=== PATIENT | male | born 1980 | race African-American/Black ===

== ENCOUNTER 2017-08-02 05:05 | Observation (INO) | payer SELFPAY ==
[~2017-08-02] VITALS: Ht 177.8 cm; Wt 85.0 kg
[~2017-08-02 05:05] MED LIST: ZOFR4TAB3 SL
[2017-08-02 05:10] VITALS: BP 131/90; PULSE 76; RESP 18; TEMP 98.4; O2SAT 98
--- NOTE | 2017-08-02 05:29 | PD ---
HPI Chief Complaint: GI Complaint Time Seen by Provider: 05:17 Travel History International Travel<30 days: No Contact w/Intl Traveler<30days: No Traveled to known affect area: No History of Present Illness HPI 36-year-old male states in the middle the night he woke up vomiting. When he went to the bathroom he noticed he had some pain to his left upper abdomen. He denies any diarrhea or other concurrent complaints. He denies any specific sick contacts. He denies recurrent history of this. He denies prior history of pancreatitis or diverticulitis. Quality is sharp. Severity is moderate. He denies specific migration of the pain. The vomiting is nonbloody. He states he was fine yesterday. PFSH Past Medical History Blood Disorders: No Cancer: No Cardiovascular Problems: No Chemotherapy: No Endocrine: No Gastrointestinal Disorders: No Genitourinary: No Immune Disorder: No Musculoskeletal: No Neurologic: No Reproductive: No Radiation Therapy: No Past Surgical History Other Surgery: Yes (LEFT KNEE FOR +MRSA) Social History Alcohol Use: Yes (OCC) Tobacco Use: No Substance Use: No Allergies-Medications (Allergen,Severity, Reaction): Coded Allergies: No Known Allergies (Verified Adverse Reaction, Unknown, 08/02/17) Reported Meds & Prescriptions Reported Meds & Active Scripts Active Review of Systems Except as stated in HPI: all other systems reviewed are Neg Physical Exam Narrative GENERAL: 36 y/o male in no apparent distress SKIN: Focused skin assessment warm/dry. HEAD: Atraumatic. Normocephalic. EYES: Pupils equal and round. No scleral icterus. No injection or drainage. ENT: No nasal bleeding or discharge. Mucous membranes pink and moist. NECK: Trachea midline. CARDIOVASCULAR: Regular rate and rhythm. RESPIRATORY: No accessory muscle use. no increased effort GASTROINTESTINAL: Abdomen soft, ttp in luq, nondistended. MUSCULOSKELETAL: No obvious deformities. No clubbing. No cyanosis. NEUROLOGICAL: Awake and alert. No obvious cranial nerve deficits. Motor grossly within normal limits. Normal speech. Data Data Last Documented VS Vital Signs Date Time Temp Pulse Resp B/P (MAP) Pulse Ox O2 Delivery O2 Flow Rate FiO2 08/02/17 05:10 98.4 76 18 131/90 (104) 98 Orders Orders Complete Blood Count With Diff (08/02/17 05:17) Comprehensive Metabolic Panel (08/02/17 05:17) Urinalysis - C+S If Indicated (08/02/17 05:17) Lipase (08/02/17 05:17) Ct Abd/Pel W/O Iv Contrast (08/02/17 ) Iv Access Insert/Monitor (08/02/17 05:17) Ondansetron Inj (Zofran Inj) (08/02/17 05:30) Sodium Chlor 0.9% 1000 Ml Inj (Ns 1000 M (08/02/17 05:30) Electrocardiogram (08/02/17 06:49) Ckmb (Isoenzyme) Profile (08/02/17 06:49) Magnesium (Mg) (08/02/17 06:49) Prothrombin Time / Inr (Pt) (08/02/17 06:49) Act Partial Throm Time (Ptt) (08/02/17 06:49) Troponin I (08/02/17 06:49) Chest, Single Ap (08/02/17 06:49) Sodium Chloride 0.9% Flush (Ns Flush) (08/02/17 07:00) Drug Screen, Random Urine (08/02/17 06:49) Labs Laboratory Tests Test 08/02/17 05:20 White Blood Count 4.1 TH/MM3 Red Blood Count 5.33 MIL/MM3 Hemoglobin 14.6 GM/DL Hematocrit 43.9 % Mean Corpuscular Volume 82.4 FL Mean Corpuscular Hemoglobin 27.4 PG Mean Corpuscular Hemoglobin Concent 33.3 % Red Cell Distribution Width 13.3 % Platelet Count 199 TH/MM3 Mean Platelet Volume 8.8 FL Neutrophils (%) (Auto) 36.6 % Lymphocytes (%) (Auto) 54.2 % Monocytes (%) (Auto) 5.5 % Eosinophils (%) (Auto) 2.9 % Basophils (%) (Auto) 0.8 % Neutrophils # (Auto) 1.5 TH/MM3 Lymphocytes # (Auto) 2.2 TH/MM3 Monocytes # (Auto) 0.2 TH/MM3 Eosinophils # (Auto) 0.1 TH/MM3 Basophils # (Auto) 0.0 TH/MM3 CBC Comment DIFF FINAL Differential Comment Blood Urea Nitrogen 11 MG/DL Creatinine 1.20 MG/DL Random Glucose 96 MG/DL Total Protein 7.9 GM/DL Albumin 3.8 GM/DL Calcium Level 8.8 MG/DL Alkaline Phosphatase 68 U/L Aspartate Amino Transf (AST/SGOT) 26 U/L Alanine Aminotransferase (ALT/SGPT) 25 U/L Total Bilirubin 0.5 MG/DL Sodium Level 138 MEQ/L Potassium Level 4.1 MEQ/L Chloride Level 105 MEQ/L Carbon Dioxide Level 27.1 MEQ/L Anion Gap 6 MEQ/L Estimat Glomerular Filtration Rate 83 ML/MIN Lipase 80 U/L MDM Medical Decision Making Medical Screen Exam Complete: Yes Emergency Medical Condition: Yes Medical Record Reviewed: Yes (pmh confirmed) Differential Diagnosis pancreatitis, stone, diverticulitis.... Narrative Course will check labs, ua, ct abdomen and dose with zofran and reevaluate mother states family history of heart disease with her and her mother in their 40s. Patient now stating he earlier had left arm pain. Will add on cardiac workup Physician Communication Physician Communication dr hernandez to follow work up and reevaluate Davina Figueroa MD Aug 02, 2017 05:29
[2017-08-02] MEDS ORDERED: ONDANSETRON HCL 4 MG/2 ML VIAL IV PUSH ONE (05:30)
[2017-08-02] MEDS ORDERED: SODIUM CHLOR 0.9% 1000 ML INJ 1,000 ML IV ONE (05:30)
--- NOTE | 2017-08-02 05:44 | RADRPT ---
EXAM DATE/TIME: 08/02/2017 05:21 [facility] COMPARISON: No previous studies available for comparison. INDICATIONS : Left side abdominal pain and vomiting. ORAL CONTRAST: No oral contrast ingested. RADIATION DOSE: 7.04 CTDIvol (mGy) MEDICAL HISTORY : None SURGICAL HISTORY : None. ENCOUNTER: Initial ACUITY: 1 day PAIN SCALE: 6/10 LOCATION: Left abdomen. TECHNIQUE: Volumetric scanning of the abdomen and pelvis was performed. Using automated exposure control and ad justment of the mA and/or kV according to patient size, radiation dose was kept as low as reasonably achievable to obtain optimal diagnostic quality images. DICOM format image data is available electro nically for review and comparison. FINDINGS: LOWER LUNGS: The visualized lower lungs are clear. LIVER: Homogeneous density without lesion. There is no dilation of the biliary tree. No calcified gallston es. SPLEEN: Normal size without lesion. PANCREAS: Within normal limits. KIDNEYS: Normal in size and shape. There is no mass, stone, or hydronephrosis. ADRENAL GLANDS: Within normal limits. VASCULAR: There is no aortic aneurysm. BOWEL/MESENTERY: The stomach, small bowel, and colon demonstrate no acute abnormality. There is no free intraperitone al air or fluid. ABDOMINAL WALL: Within normal limits. RETROPERITONEUM: There is no lymphadenopathy. BLADDER: No wall thickening or mass. REPRODUCTIVE: Within normal limits. INGUINAL: There is no lymphadenopathy or hernia. MUSCULOSKELETAL: Within normal limits for patient age. CONCLUSION: Normal examination. Chance Lanier Jr., MD on August 02, 2017 at 5:42 Board Certified Radiologist. This report was verified electronically.
[2017-08-02 05:51] LABS: AUTOMATED NEUTROPHIL # 1.5 TH/MM3 (1.8-7.7); BASOPHIL % 0.8 % (0.0-2.0); EOSINOPHIL # 0.1 TH/MM3 (0-0.4); EOSINOPHIL % 2.9 % (0.0-4.0); HEMATOCRIT 43.9 % (39.0-51.0); HEMOGLOBIN 14.6 GM/DL (13.0-17.0); LYMPH % 54.2 % (9.0-44.0); LYMPHOCYTE # 2.2 TH/MM3 (1.0-4.8); MEAN CELL VOLUME 82.4 FL (80.0-100.0); MEAN CORPUSCULAR HEMOGLOBIN 27.4 PG (27.0-34.0); MEAN CORPUSCULAR HGB CONC 33.3 % (32.0-36.0); MEAN PLATELET VOLUME 8.8 FL (7.0-11.0); MONO % 5.5 % (0.0-8.0); MONOCYTE # 0.2 TH/MM3 (0-0.9); NEUT % 36.6 % (16.0-70.0); PLATELET COUNT 199 TH/MM3 (150-450); RED BLOOD COUNT 5.33 MIL/MM3 (4.50-5.90); RED CELL DISTRIBUTION WIDTH 13.3 % (11.6-17.2); WHITE BLOOD COUNT 4.1 TH/MM3 (4.0-11.0)
[2017-08-02 06:29] LABS: ALT (GPT) 25 U/L (12-78)
[2017-08-02 06:31] LABS: ALKALINE PHOSPHATASE 68 U/L (45-117); TOTAL BILIRUBIN ADULT 0.5 MG/DL (0.2-1.0); TOTAL PROTEIN 7.9 GM/DL (6.4-8.2)
[2017-08-02 06:36] LABS: ALBUMIN 3.8 GM/DL (3.4-5.0); AST (GOT) 26 U/L (15-37); BICARBONATE 27.1 MEQ/L (21.0-32.0); BLOOD UREA NITROGEN 11 MG/DL (7-18); CALCIUM 8.8 MG/DL (8.5-10.1); CHLORIDE 105 MEQ/L (98-107); GLOMERULAR FILTRATION RATE 83 ML/MIN (>89); GLUCOSE,RANDOM 96 MG/DL (74-106); SODIUM (NA) 138 MEQ/L (136-145)
[2017-08-02] MEDS ORDERED: SODIUM CHLORIDE 0.9% FLUSH 10 ML FLUSH IVF PRN (07:00)
--- NOTE | 2017-08-02 07:21 | RADRPT ---
EXAM DATE/TIME: 08/02/2017 07:05 [facility] COMPARISON: No previous studies available for comparison. INDICATIONS : Chest and abdominal pain, left arm numbness and vomiting. MEDICAL HISTORY : None. SURGICAL HISTORY : None. ENCOUNTER: Initial ACUITY: 1 day PAIN SCORE: 6/10 LOCATION: Left Chest, abdomen, arm. FINDINGS: A single view of the chest demonstrates the lungs to be symmetrically aerated without evidence of mas s, infiltrate or effusion. The cardiomediastinal contours are unremarkable. Osseous structures are intact. CONCLUSION: Normal examination. Johana Rasmussen MD on August 02, 2017 at 7:20 Board Certified Radiologist. This report was verified electronically.
[2017-08-02 07:49] LABS: BILIRUBIN, URINE NEG (NEG); BLOOD, URINE NEG (NEG); GLUCOSE,URINE NEG (NEG); KETONE, URINE NEG (NEG); MUCUS URINE FEW /lpf (OCC); NITRITE,URINE NEG (NEG); SQUAMOUS EPITHELIAL CELL URINE <1 /hpf (0-5); URINE COLOR YELLOW (YELLW/STRAW); URINE LEUKOCYTE ESTERASE NEG (NEG)
[2017-08-02 07:50] LABS: INTERNATIONAL NORMALIZED RATIO 1.1 RATIO; PROTHROMBIN TIME - PATIENT 11.1 SEC (9.8-11.6)
--- NOTE | 2017-08-02 08:17 | PD ---
Physical Exam Narrative Receive sign out from previous team to follow up with cardiac work up and reevaluate. 36yo M initially came in for abdominal pain but also left sided chest pain that is atypical. Said he vomited this morning, had epigastric abdominal pain but also left sided chest pain that is crampy. Chest pain is atypical but mother said pt has significant family history of cardiac disease. Said she had CAD and heart attack in her 50s. Said never had this before. Denies cig smoking. Labs reviewed, no leukocytosis. H/H normal. CMP unremarkable. Lipase normal. Utox negative. UA negative. CXR negative. CT a/p normal examination. EKG showed sinus bradycardia at 58bpm. Normal axis. TWI III. ID depression II, V4-V6. The computer is reading it as ST elevation consistent with injury but I do not see ST segment elevation. Troponin negative. Pt given ibuprofen which helped with pain. Given family history, will do observation with chest pain center. Data Data Last Documented VS Vital Signs Date Time Temp Pulse Resp B/P (MAP) Pulse Ox O2 Delivery O2 Flow Rate FiO2 08/02/17 05:10 98.4 76 18 131/90 (104) 98 Orders Orders Complete Blood Count With Diff (08/02/17 05:17) Comprehensive Metabolic Panel (08/02/17 05:17) Urinalysis - C+S If Indicated (08/02/17 05:17) Lipase (08/02/17 05:17) Ct Abd/Pel W/O Iv Contrast (08/02/17 ) Iv Access Insert/Monitor (08/02/17 05:17) Ondansetron Inj (Zofran Inj) (08/02/17 05:30) Sodium Chlor 0.9% 1000 Ml Inj (Ns 1000 M (08/02/17 05:30) Electrocardiogram (08/02/17 06:49) Ckmb (Isoenzyme) Profile (08/02/17 06:49) Magnesium (Mg) (08/02/17 06:49) Prothrombin Time / Inr (Pt) (08/02/17 06:49) Act Partial Throm Time (Ptt) (08/02/17 06:49) Troponin I (08/02/17 06:49) Chest, Single Ap (08/02/17 06:49) Sodium Chloride 0.9% Flush (Ns Flush) (08/02/17 07:00) Drug Screen, Random Urine (08/02/17 06:49) Ibuprofen (Motrin) (08/02/17 08:30) CKMB (08/02/17 05:20) CKMB% (08/02/17 05:20) Admit Order (Ed Use Only) (08/02/17 09:48) Labs Laboratory Tests Test 08/02/17 05:20 08/02/17 07:20 White Blood Count 4.1 TH/MM3 Red Blood Count 5.33 MIL/MM3 Hemoglobin 14.6 GM/DL Hematocrit 43.9 % Mean Corpuscular Volume 82.4 FL Mean Corpuscular Hemoglobin 27.4 PG Mean Corpuscular Hemoglobin Concent 33.3 % Red Cell Distribution Width 13.3 % Platelet Count 199 TH/MM3 Mean Platelet Volume 8.8 FL Neutrophils (%) (Auto) 36.6 % Lymphocytes (%) (Auto) 54.2 % Monocytes (%) (Auto) 5.5 % Eosinophils (%) (Auto) 2.9 % Basophils (%) (Auto) 0.8 % Neutrophils # (Auto) 1.5 TH/MM3 Lymphocytes # (Auto) 2.2 TH/MM3 Monocytes # (Auto) 0.2 TH/MM3 Eosinophils # (Auto) 0.1 TH/MM3 Basophils # (Auto) 0.0 TH/MM3 CBC Comment DIFF FINAL Differential Comment Blood Urea Nitrogen 11 MG/DL Creatinine 1.20 MG/DL Random Glucose 96 MG/DL Total Protein 7.9 GM/DL Albumin 3.8 GM/DL Calcium Level 8.8 MG/DL Alkaline Phosphatase 68 U/L Aspartate Amino Transf (AST/SGOT) 26 U/L Alanine Aminotransferase (ALT/SGPT) 25 U/L Total Bilirubin 0.5 MG/DL Sodium Level 138 MEQ/L Potassium Level 4.1 MEQ/L Chloride Level 105 MEQ/L Carbon Dioxide Level 27.1 MEQ/L Anion Gap 6 MEQ/L Estimat Glomerular Filtration Rate 83 ML/MIN Magnesium Level 2.1 MG/DL Total Creatine Kinase 160 U/L Creatine Kinase MB LESS THAN 0.5 NG/ML Troponin I LESS THAN 0.02 NG/ML Lipase 80 U/L Prothrombin Time 11.1 SEC Prothromb Time International Ratio 1.1 RATIO Activated Partial Thromboplast Time 26.0 SEC Urine Color YELLOW Urine Turbidity CLEAR Urine pH 6.0 Urine Specific [place] 1.023 Urine Protein NEG mg/dL Urine Glucose (UA) NEG mg/dL Urine Ketones NEG mg/dL Urine Occult Blood NEG Urine Nitrite NEG Urine Bilirubin NEG Urine Urobilinogen LESS THAN 2.0 MG/DL Urine Leukocyte Esterase NEG Urine WBC 1 /hpf Urine Squamous Epithelial Cells <1 /hpf Urine Mucus FEW /lpf Microscopic Urinalysis Comment CULT NOT INDICATED Urine Opiates Screen NEG Urine Barbiturates Screen NEG Urine Amphetamines Screen NEG Urine Benzodiazepines Screen NEG Urine Cocaine Screen NEG Urine Cannabinoids Screen NEG MDM Supervised Visit with [facility]A: No Diagnosis Primary Impression: Chest pain Qualified Codes: R07.9 - Chest pain, unspecified Admitting Information Admitting Physician Requests: Observation Scripts No Active Prescriptions or Reported Meds Sindy Zhou DO Aug 02, 2017 08:17
[2017-08-02] MEDS ORDERED: IBUPROFEN 600 MG TAB PO ONE (08:30)
[2017-08-02 08:48] LABS: TROPONIN I LESS THAN 0.02 NG/ML (0.02-0.05)
[2017-08-02 08:49] LABS: MAGNESIUM 2.1 MG/DL (1.5-2.5)
[2017-08-02 11:00] VITALS: BP 121/62; PULSE 57; RESP 18; O2SAT 97
[2017-08-02] MEDS ORDERED: NITROGLYCERIN 0.4 MG SL 25 TABS/BTL SL PRN (11:00)
[2017-08-02] MEDS ORDERED: ONDANSETRON HCL 4 MG/2 ML VIAL IV PUSH PRN (11:00)
[2017-08-02] MEDS ORDERED: ACETAMINOPHEN 500 MG CPLT PO PRN (11:00)
[2017-08-02 11:48] VITALS: BP 118/78; PULSE 63; RESP 18; O2SAT 98
--- NOTE | 2017-08-02 11:59 | HHI.HP ---
HPI Primary Care Physician No Primary Care Physician Chief Complaint Abdominal pain History of Present Illness 36-year-old male with no past significant medical history presents to emergency room for further evaluation of abdominal pain and vomiting. Onset 430. Reports awaken with a bad dream that he was choking. Upon awakening reports nonbloody emesis in his mouth and severely nauseated. Once awaken experienced left midabdominal pain with radiation to left flank Characterized sharp and "as the worse cramp ever." Left arm initiating felt numb and tinglingly, currently resolved. Duration of abdominal discomfort constant, stated "most mild pain only now." No associated symptoms of dyspnea or diaphoresis. No known precipitating or relieving factors. Denies similar pain in the past. No particular movement or position makes pain better or worse. No recent fever, chills, illness, or recent travel. Mother at bedside and verbalized concern with her own cardiac issues beginning in her mid 30s. Apparently she had an undetermined cause for mildly elevated troponin's leading to multiple stress testing and cardiac catheterization. Denies any early Mi's or early onset coronary disease to her knowledge. Review of Systems General: No fatigue,weakness, fever, chills, recent illness, or change in appetite. Has been in his general state of health. HEENT: No BURT, no nasal congestion or drainage, no dysphasia, or history of GERD. CV: As stated above, denied having chest pain, points to left lateral, mid abdominal area. RESP: No SOB, cough, wheeze, or recent URI GI: Nausea and vomiting have resolved. No bowel changes, diarrhea, constipation , pain, distention, melena, or blood in the stool. No unintentional weight gain or weight loss. : No dysuria, urgency, frequency, EXT: No lower leg edema, no paraesthesias MS: No discomfort, injury, trauma, or change in ROM NEURO: No difficulty with balance, LOC, motor/sensory deficits PSYCH: No anxiety, depression SKIN: No rashes, no concerning lesions Past Family Social History Allergies: Coded Allergies: No Known Allergies (Verified Allergy, Unknown, 08/02/17) Past Medical History None Past Surgical History Left ankle surgery Reported Medications Reported Meds & Active Scripts Active Active Ordered Medications Current Medications Medications (Trade) Dose Ordered Sig/Kamryn Route Start Time Stop Time Status Last Admin (NS Flush) 2 ml UNSCH PRN IVF 08/02/17 07:00 (NS Flush) 2 ml BID IV FLUSH 08/02/17 21:00 (Tylenol) 500 mg Q4H PRN PO 08/02/17 11:00 (Zofran Inj) 4 mg Q6H PRN IV PUSH 08/02/17 11:00 (Nitrostat Sl) 0.4 mg Q5M PRN SL 08/02/17 11:00 (Aspirin) 325 mg DAILY PO 08/03/17 09:00 Family History Mother reports elevated troponin's in her early 30s, cause undetermined, denies any early CAD or [place]. Most recently mother had cardiac catheterization, no intervention required. Social History No known diabetes, hypertension, or hyperlipidemia. Lifelong non-smoker. Endorses active lifestyle, runs twice week, attends gym regular basis. Past cardiac testing None Physical Exam Vital Signs Vital Signs Date Time Temp Pulse Resp B/P (MAP) Pulse Ox O2 Delivery O2 Flow Rate FiO2 08/02/17 11:00 57 18 121/62 (81) 97 Room Air 08/02/17 05:10 98.4 76 18 131/90 (104) 98 Physical Exam GENERAL: Alert WN, WD, NAD, pleasant, -Guyanese male HEAD: NC, AT EYES: Sclera clear, conjunctiva without injection, pupils equal and round ENT: Mucous membranes pink and moist CV: RRR, without murmur, rub, gallop, no JVD, S1-S2 no S3-S4. Chest wall nontender with palpation. RESP: Clear lungs throughout bilateral, no crackles, wheeze, rhonchi, symmetrical chest rise, nonlabored, able to speak in full sentences ABD: Soft, NT, ND, no masses, positive bowel tones EXT: Pulses +2x4, no dependent edema MS: Normal tone x4 extremities, no obvious deformities, full range of motion NEURO: CN II through CN XII grossly intact, motor strength 5/5 PSYCH: A+O -3, pleasant affect, appropriate speech, mood, insight and judgment SKIN: Normal turgor, normal texture, no lesions, no rashes, brisk cap refill, even hair distribution Laboratory Laboratory Tests Test 08/02/17 05:20 08/02/17 07:20 White Blood Count 4.1 Red Blood Count 5.33 Hemoglobin 14.6 Hematocrit 43.9 Mean Corpuscular Volume 82.4 Mean Corpuscular Hemoglobin 27.4 Mean Corpuscular Hemoglobin Concent 33.3 Red Cell Distribution Width 13.3 Platelet Count 199 Mean Platelet Volume 8.8 Neutrophils (%) (Auto) 36.6 Lymphocytes (%) (Auto) 54.2 Monocytes (%) (Auto) 5.5 Eosinophils (%) (Auto) 2.9 Basophils (%) (Auto) 0.8 Neutrophils # (Auto) 1.5 Lymphocytes # (Auto) 2.2 Monocytes # (Auto) 0.2 Eosinophils # (Auto) 0.1 Basophils # (Auto) 0.0 CBC Comment DIFF FINAL Differential Comment Blood Urea Nitrogen 11 Creatinine 1.20 Random Glucose 96 Total Protein 7.9 Albumin 3.8 Calcium Level 8.8 Alkaline Phosphatase 68 Aspartate Amino Transf (AST/SGOT) 26 Alanine Aminotransferase (ALT/SGPT) 25 Total Bilirubin 0.5 Sodium Level 138 Potassium Level 4.1 Chloride Level 105 Carbon Dioxide Level 27.1 Anion Gap 6 Estimat Glomerular Filtration Rate 83 Magnesium Level 2.1 Total Creatine Kinase 160 Creatine Kinase MB LESS THAN 0.5 Troponin I LESS THAN 0.02 Lipase 80 Prothrombin Time 11.1 Prothromb Time International Ratio 1.1 Activated Partial Thromboplast Time 26.0 Urine Color YELLOW Urine Turbidity CLEAR Urine pH 6.0 Urine Specific [place] 1.023 Urine Protein NEG Urine Glucose (UA) NEG Urine Ketones NEG Urine Occult Blood NEG Urine Nitrite NEG Urine Bilirubin NEG Urine Urobilinogen LESS THAN 2.0 Urine Leukocyte Esterase NEG Urine WBC 1 Urine Squamous Epithelial Cells <1 Urine Mucus FEW Microscopic Urinalysis Comment CULT NOT INDICATED Urine Opiates Screen NEG Urine Barbiturates Screen NEG Urine Amphetamines Screen NEG Urine Benzodiazepines Screen NEG Urine Cocaine Screen NEG Urine Cannabinoids Screen NEG Result Diagram: 08/02/17 0520 08/02/17 0520 Imaging Last 48 hours Impressions Chest X-Ray 08/02/17 0649 Signed Impressions: Service Date/Time: Wednesday, August 02, 2017 07:05 - CONCLUSION: Normal examination. Johana Rasmussen MD Abdomen/Pelvis CT 08/02/17 0000 Signed Impressions: Service Date/Time: Wednesday, August 02, 2017 05:21 - CONCLUSION: Normal examination. Chance Lanier Jr., MD Course EKG NSB, st elevation may represent early repolarization Caprini VTE Risk Assessment Caprini VTE Risk Assessment: No/Low Risk (score <= 1) Caprini Risk Assessment Model Point Value = 1 Point Value = 2 Point Value = 3 Point Value = 5 Age 41-60 Minor surgery BMI > 25 kg/m2 Swollen legs Varicose veins or History of unexplained or recurrent spontaneous Oral contraceptives or hormone replacement Sepsis (< 1 month) Serious lung disease, including pneumonia (< 1 month) Abnormal pulmonary function Acute myocardial infarction Congestive heart failure (< 1 month) History of inflammatory bowel disease Medical patient at bed rest Age 61-74 Arthroscopic surgery Major open surgery (> 45 min) Laparoscopic surgery (> 45 min) Malignancy Confined to bed (> 72 hours) Immobilizing plaster cast Central venous access Age >= 75 History of VTE Family history of VTE Factor V Leiden Prothrombin [id number] Lupus anticoagulant Anticardiolipin antibodies Elevated serum homocysteine Heparin-induced thrombocytopenia Other congenital or acquired thrombophilia Stroke (< 1 month) Elective arthroplasty Hip, pelvis, or leg fracture Acute spinal cord injury (< 1 month) Prophylaxis Regimen Total Risk Factor Score Risk Level Prophylaxis Regimen 0-1 Low Early ambulation 2 Moderate Order ONE of the following: *Sequential Compression Device (SCD) *Heparin 5000 units SQ BID 3-4 Higher Order ONE of the following medications: *Heparin 5000 units SQ TID *Enoxaparin/Lovenox 40 mg SQ daily (WT < 150 kg, CrCl > 30 mL/min) *Enoxaparin/Lovenox 30 mg SQ daily (WT < 150 kg, CrCl > 10-29 mL/min) *Enoxaparin/Lovenox 30 mg SQ BID (WT < 150 kg, CrCl > 30 mL/min) AND/OR *Sequential Compression Device (SCD) 5 or more Highest Order ONE of the following medications: *Heparin 5000 units SQ TID (Preferred with Epidurals) *Enoxaparin/Lovenox 40 mg SQ daily (WT < 150 kg, CrCl > 30 mL/min) *Enoxaparin/Lovenox 30 mg SQ daily (WT < 150 kg, CrCl > 10-29 mL/min) *Enoxaparin/Lovenox 30 mg SQ BID (WT < 150 kg, CrCl > 30 mL/min) AND *Sequential Compression Device (SCD) Assessment and Plan Assessment and Plan #1 Atypical cardiac pain-admitted to chest pain center. Begin ACS protocol. Will be seen and evaluated by Dr. Manuel Silver. Further disposition to follow after assessment by compressor operator portable. Discussed possible cardiac stress testing later this afternoon. Patient agreeable to plan of care. CT abdomen normal exam , initial laboratory studies unremarkable, nausea/vomiting resolved, and without acute physical assessment findings. Encouraged to establish with a primary care provider for routine preventive care and medical management. Pauly Chavez Aug 02, 2017 11:59
[2017-08-02 12:31] LABS: TROPONIN I LESS THAN 0.02 NG/ML (0.02-0.05)
[2017-08-02 13:06] VITALS: BP 114/64; PULSE 66; RESP 16; TEMP 98; O2SAT 98
[2017-08-02 14:30] LABS: TROPONIN I LESS THAN 0.02 NG/ML (0.02-0.05)
--- NOTE | 2017-08-02 16:41 | HHI.DCPOC ---
Discharge Care Plan Diagnosis: (1) Atypical chest pain Goals to Promote Your Health * To prevent worsening of your condition and complications * To maintain your health at the optimal level Directions to Meet Your Goals Take your medications as prescribed Follow your dietary instruction Follow activity as directed Keep your appointments as scheduled Take your immunizations and boosters as scheduled If your symptoms worsen call your PCP, if no PCP go to Urgent Care Center or Emergency Room Smoking is Dangerous to Your Health. Avoid second hand smoke Call the 24-hour hour crisis hotline for domestic abuse at Pauly Chavze Aug 02, 2017 16:40
[2017-08-02] MEDS ORDERED: SODIUM CHLORIDE 0.9% FLUSH 10 ML FLUSH IV FLUSH SCH (21:00)
[2017-08-03] MEDS ORDERED: ASPIRIN 325 MG TAB PO SCH (09:00)
--- NOTE | 2017-08-03 11:30 | TR ---
Date Performed: 08/02/2017 Time Performed: 15:59:34 DOCTOR: Chano Greenwood DRUG LIST: CLINICAL HISTORY: CHEST PAIN REASON FOR TEST: Chest pain REASON FOR ENDING: OBSERVATION: CONCLUSION: Devonte protocol completed. Stopped sec to exceeding target heart rate. Maximum TD=263 Target HR Achieved=93.0% Maximum SE=854/82 Total Exercise Time=9:00. No reprod chest discomfort. No ectopy. Ran entire time in stage III due to patients preference. Horizional ST segments inferiorly. G reat exercise tolerance. Normal bp response. Recovery quick and unremarkable. Early repolarization at baseline,upsloping st segments at peak. COMMENTS: Conclusion: Normal treadmill exercise. No evidence of ischemia.
--- NOTE | 2017-08-03 11:45 | EKG ---
Date Performed: 08/02/2017 Time Performed: 12:18:07 PTAGE: 36 years EKG: SINUS BRADYCARDIA ST ELEVATION, PROBABLY EARLY REPOLARIZATION NONSPECIFIC ST & T-WAVE ABNOR MALITY BORDERLINE ECG PREVIOUS TRACING : 08/02/2017 07.48 Since previous tracing, no significant change noted DOCTOR: Chano Greenwood Interpretating Date/Time 08/03/2017 11:45:08
--- NOTE | 2017-08-03 11:45 | EKG ---
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
--- NOTE | 2017-08-03 11:48 | EKG ---
Date Performed: 08/02/2017 Time Performed: 07:48:27 PTAGE: 36 years EKG: SINUS BRADYCARDIA POSSIBLE LEFT ATRIAL ENLARGEMENT EARLY REPOLARIZATION NONSPECIFIC ST & T- WAVE ABNORMALITY ABNORMAL ECG INTERPRETATION BASED ON A DEFAULT AGE OF 40 YEARS NO PREVIOUS TRACING DOCTOR: Chano Greenwood Interpretating Date/Time 08/03/2017 11:45:46
== END 2017-08-02 17:21 | disposition home or self-care (01) ==
LOC: NEPE 05:05 → NEDA 09:49 → NEPHCDU 12:32
PROVIDERS: ADMIT Internal Medicine Cardiovascular Disease; ATTEND Internal Medicine Cardiovascular Disease
DX: R07.89 Other chest pain (principal); R10.13 Epigastric pain; R11.2 Nausea with vomiting, unspecified; R00.1 Bradycardia, unspecified; R94.31 Abnormal electrocardiogram [ECG] [EKG]; Z82.49 Family history of ischemic heart disease and other diseases of the circulatory system
CPT/HCPCS: 71045; 74176; 80053; 80307; 81001; 82550; 82552; 83690; 83735; 84484; 85025; 85610; 85730; 93005; 93017; 96361; 96374; 99285; G0378; J2405; J7030